=== PATIENT | male | born 1970 | race African-American/Black ===

== ENCOUNTER 2016-07-12 16:46 | Emergency (ER) | payer BC, OTHER ==
--- NOTE | ~2016-07-12 | CR93 ---
[facility] A Service of [facility] & [facility] RADIOLOGY TEXT RESULTS PATIENT: ZAYDA GONZALEZ LOCATION: [facility] : 70 UNIT #: [id number] AGE: [address]: Rakan Wise MD SEX: M ORDER DR: [id number] [facility] [address] [place], [place] [address] [id number] E MR#: [id number] Acc #: [id number] NAME: ZAYDA GONZALEZ. : 1970 SEX: M STUDY DATE/TIME: 07/12/2016 17:33 UNIT: [facility] ROOM: STUDY DESCRIPTION: CR Elbow Min 3 Views Lt Attending Physician: Rakan Wise M.D. Ordering Physician: Rakan Wise M.D. Primary Care Physician: [facility], [facility]. MEDICAL IMAGING REPORT This report is preliminary unless electronic signature is present EXAM Left elbow 07/12/2016 HISTORY Elbow laceration. Concern for foreign body. TECHNIQUE 3 views of the elbow were obtained. FINDINGS 3 views of the elbow show a small bone spur at the medial joint line. There is no evidence of fracture, foreign body or effusion. IMPRESSION Mild degenerative change along the medial joint line. No evidence of fracture or foreign body. Dictated by... Mendoza Polanco M.D. THIS IS AN ELECTRONICALLY VERIFIED REPORT Mendoza Polanco M.D. at 07/14/2016 11:02 AM Pierce TD: 07/13/2016 11:04 JOB #: [id number] MEDICAL IMAGING REPORT Page 1 of 1 COPY
== END 2016-07-12 20:01 | disposition home or self-care (01) ==
LOC: CED 16:46
DX: S51.012A Laceration without foreign body of left elbow, initial encounter (principal); S21.212A Laceration without foreign body of left back wall of thorax without penetration into thoracic cavity, initial encounter; E78.5 Hyperlipidemia, unspecified; W45.8XXA Other foreign body or object entering through skin, initial encounter
CPT/HCPCS: 12034; 73080; 99283